=== PATIENT | female | born 1980 | race Caucasian/White ===

== ENCOUNTER 2019-05-13 20:11 | Emergency (ER) | payer BC ==
--- OUTSIDE RECORDS SUMMARY | 2019-05-13 20:25 | XMS REPORT | Continuity of Care Document ---
:1980 External Reference #:[id number] Author Name Haley Avitia N.P. 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 Onset: 05/22/2017 Palpitations Vic Ball M.D., [facility] Onset: 07/07/2016 Social History Type Date Description Comments Sex Unknown Cigarette Use Pack Years - 19 ETOH Use Denies alcohol use Tobacco Use Start: Unknown Patient is a current smoker, smokes every day Recreational Drug Use Denies Drug Use Smoking Status Reviewed: 04/29/19 Patient is a current smoker, smokes every day Exercise Type/Frequency Swims 2 times a week [facility] Allergies, Adverse Reactions, Alerts Description No Known Drug Allergies Medications Active Medications SIG Qnty Indications Ordering Provider Date Motrin Ib 3 tablet po Unknown 200mg Tablets daily For H/A , pain Xanax 1 tablet po as Unknown 0.25mg needed Amitriptyline HCL 1 tablet po up Unknown 25mg to 3 times per daily Spironolactone/Hydrochlor 1 by mouth Unknown othiazide every day 25-25mg Tablets Cyclobenzaprine HCL 1-2 by mouth as Unknown 5mg Tablets needed for pain and sleep [employer] [address] + Unknown [place] + Coq10 100mg CoQ10 1-2 daily Calcium Citrate + D3 take two tabs Unknown Maximum by mouth twice [id number] Tablets daily Chelated Magnesium 1-2 tab by Unknown 100mg mouth 2x daily Tablets L-Lysine HCL Unknown 1000mg Tablets Vitamin K2 1 by mouth Unknown 100mcg Capsules every day CBD [employer] 1000mg 2 times Unknown daily (30 gtts) Acetaminophen 2 tabs twive Unknown 500mg Tablets daily Immunizations Description No Information Available Vital Signs Date Vital Result Comment 04/29/2019 1:07pm Height 66.50 inches 5'6.50" Weight 233.25 lb Heart Rate 84 /min BP Systolic 127 mmHg BP Diastolic 92 mmHg O2 % BldC Oximetry 96 % BMI (Body Mass Index) 37.1 kg/m2 Last Menstrual Period [id number] 05/22/2017 11:16am Height 66.50 inches 5'6.50" Weight 228.00 lb without shoes Heart Rate 82 /min BP Systolic Sitting 114 mmHg Lue lg cuff BP Diastolic Sitting 80 mmHg Lue lg cuff BP Systolic Standing 118 mmHg Lue lg cuff BP Diastolic Standing 80 mmHg Lue lg cuff Respiratory Rate 17 /min BMI (Body Mass Index) 36.2 kg/m2 Ejection Fraction 55-60% date 05/06/17 ECHO Results Test Acquired Date Facility Test Result H/L Range Note Laboratory test 04/29/2019 [facility] Cytology <pending> finding [address] [place] [address] [phone] Procedures Date Code Description Status 03/02/2011 [id number] Mammogram Completed Medical Devices Description No Information Available Encounters Description No Information Available Assessments Description No Information Available Plan of Treatment No Information Available Functional Status Description No Information Available Mental Status Description No Information Available Referrals Description No Information Available
[2019-05-13 20:32] LABS: ABS Basophils 0.1 10^3/ul (0-0.2); ABS Eosinophils 0.1 10^3/ul (0-0.6); ABS Monocytes 0.8 10^3/ul (0-0.8); ABS Neutrophils 3.9 10^3/ul (1.5-7.7); Eosinophil % 1.2 %; Hematocrit 44 % (35-47); Lymphocyte % 38.1 %; Mean Corpuscular HGB Conc 35 g/dL (31-36); Mean Corpuscular Hemoglobin 30 pg (27-31); Mean Corpuscular Volume 88 fL (80-97); Mean Platelet Volume 8.7 fL (7.4-10.4); Platelet Count 284 10^3/uL (150-450); Red Blood Count 4.97 10^6 /uL (3.70-4.87); Red Cell Distribution Width 13 % (10-15)
[2019-05-13 20:39] LABS: INR 1.09 (0.82-1.09)
[2019-05-13 20:49] LABS: Albumin 4.5 g/dL (3.2-5.2); Albumin/Globulin Ratio 1.6 (1-3); BUN/Creatinine Ratio 28.2 (8-20); Calcium 9.8 mg/dL (8.6-10.3); EGFR African American 110.3 (>60); EGFR Non-African American 91.2 (>60); Globulin 2.8 g/dL (2-4); Potassium 3.4 mmol/L (3.5-5.0); Total Bilirubin 0.2 mg/dL (0.2-1.0); Total Protein 7.3 g/dL (6.4-8.9)
--- NOTE | 2019-05-14 02:20 | ED ---
HPI Chest Pain - HPI Summary HPI Summary: 39 year old female presents with chest pressure today. She states today when she was at work and was standing up she felt hot, dizzy and SOB. symptoms felt better with sitting. States that for the past 2 weeks she has been feeling off so scheduled an appointment with dr ball. Saw dr ball in past for murmur. She has been having intermittent chest pressure and short of breath. She denies any pain currently. No cough. No fevers. No abd pain. No nausea or vomiting. No recent travel. She hasn't tried anything for her symptoms. She is a smoker. Has history of high blood pressure. She is not diabetic. No family history of cardiac disease. - History of Current Complaint Chief Complaint: EDChestPainROMI Time Seen by Provider: 05/14/19 02:18 Hx Last Menstrual Period: now Pain Intensity: 0 - Allergy/Home Medications Allergies/Adverse Reactions: Allergies Allergy/AdvReac Type Severity Reaction Status Date / Time No Known Allergies Allergy Verified 03/29/19 09:19 Home Medications: Home Medications 2 Antibiotics ? Name 11/05/13 [History Confirmed 11/05/13] Amitriptyline TAB* 11/05/13 [History Confirmed 11/05/13] Flexeril TAB* 11/05/13 [History Confirmed 11/05/13] oxyCODONE TAB* 11/05/13 [History Confirmed 11/05/13] PMH/Surg Hx/FS Hx/Imm Hx Endocrine/Hematology History: Denies: Hx Anticoagulant Therapy Cardiovascular History: Reports: Hx Hypertension Respiratory History: Denies: Hx Asthma - Cancer History Hx Chemotherapy: No Hx Radiation Therapy: No - Surgical History Surgery Procedure, Year, and Place: C SECTION Infectious Disease History: No Infectious Disease History: Denies: Traveled Outside the [place] in Last 30 Days - Family History Known Family History: Negative: Cardiac Disease - Social History Alcohol Use: Occasionally Substance Use Type: Reports: Prescribed Smoking Status (MU): Heavy Every Day Tobacco Smoker Type: Cigarettes Review of Systems Negative: Fever Positive: Chest Pain Positive: Shortness Of Breath. Negative: Cough All Other Systems Reviewed And Are Negative: Yes Physical Exam Triage Information Reviewed: Yes Vital Signs On Initial Exam: Initial Vitals Temp Pulse Resp BP Pulse Ox 97.6 F 87 20 158/92 95 05/13/19 20:19 05/13/19 20:19 05/13/19 20:19 05/13/19 20:19 05/13/19 20:19 Vital Signs Reviewed: Yes Appearance: Positive: Well-Appearing Skin: Positive: Warm, Dry Head/Face: Positive: Normal Head/Face Inspection Eyes: Positive: Normal, Conjunctiva Clear ENT: Positive: Pharynx normal Respiratory/Lung Sounds: Positive: Clear to Auscultation, Breath Sounds Present , Other - nonreproducible chest pain Cardiovascular: Positive: Normal, RRR Abdomen Description: Positive: Nontender, Soft Bowel Sounds: Positive: Present Musculoskeletal: Positive: Normal Neurological: Positive: Normal, Normal Gait Psychiatric: Positive: Normal Procedures - Sedation Patient Received Moderate/Deep Sedation with Procedure: No Diagnostics - Vital Signs Vital Signs Temp Pulse Resp BP Pulse Ox 05/14/19 02:14 153/101 05/14/19 00:34 97.5 F 90 16 131/92 96 05/13/19 20:19 97.6 F 87 20 158/92 95 - Laboratory Lab Results: Lab Results 05/13/19 05/13/19 05/13/19 Range/Units 20:24 20:24 20:24 WBC 8.0 (3.5-10.8) 10^3/uL RBC 4.97 H (3.70-4.87) 10^6 /uL Hgb 15.0 (12.0-16.0) g/dL Hct 44 (35-47) % MCV 88 (80-97) fL MCH 30 (27-31) pg MCHC 35 (31-36) g/dL RDW 13 (10-15) % Plt Count 284 (150-450) 10^3/uL MPV 8.7 (7.4-10.4) fL Neut % (Auto) 49.5 % Lymph % (Auto) 38.1 % Kendall % (Auto) 10.5 % Eos % (Auto) 1.2 % Baso % (Auto) 0.7 % Absolute Neuts (auto) 3.9 (1.5-7.7) 10^3/ul Absolute Lymphs (auto) 3.0 (1.0-4.8) 10^3/ul Absolute Monos (auto) 0.8 (0-0.8) 10^3/ul Absolute Eos (auto) 0.1 (0-0.6) 10^3/ul Absolute Basos (auto) 0.1 (0-0.2) 10^3/ul Absolute Nucleated RBC 0.0 10^3/ul Nucleated RBC % 0.0 INR (Anticoag Therapy) 1.09 (0.82-1.09) D-Dimer, Quantitative < 200 (Less Than 230) ng/mL Sodium 137 (135-145) mmol/L Potassium 3.4 L (3.5-5.0) mmol/L Chloride 100 L (101-111) mmol/L Carbon Dioxide 26 (22-32) mmol/L Anion Gap 11 (2-11) mmol/L BUN 20 (6-24) mg/dL Creatinine 0.71 (0.51-0.95) mg/dL Est GFR ( Amer) 110.3 (>60) Est GFR (Non-Af Amer) 91.2 (>60) BUN/Creatinine Ratio 28.2 H (8-20) Glucose 145 H (70-100) mg/dL Calcium 9.8 (8.6-10.3) mg/dL Total Bilirubin 0.20 (0.2-1.0) mg/dL AST 25 (13-39) U/L ALT 34 (7-52) U/L Alkaline Phosphatase 64 (34-104) U/L Troponin I 0.00 (<0.03) ng/mL Total Protein 7.3 (6.4-8.9) g/dL Albumin 4.5 (3.2-5.2) g/dL Globulin 2.8 (2-4) g/dL Albumin/Globulin Ratio 1.6 (1-3) 05/13/19 Range/Units 23:25 WBC (3.5-10.8) 10^3/uL RBC (3.70-4.87) 10^6 /uL Hgb (12.0-16.0) g/dL Hct (35-47) % MCV (80-97) fL MCH (27-31) pg MCHC (31-36) g/dL RDW (10-15) % Plt Count (150-450) 10^3/uL MPV (7.4-10.4) fL Neut % (Auto) % Lymph % (Auto) % Kendall % (Auto) % Eos % (Auto) % Baso % (Auto) % Absolute Neuts (auto) (1.5-7.7) 10^3/ul Absolute Lymphs (auto) (1.0-4.8) 10^3/ul Absolute Monos (auto) (0-0.8) 10^3/ul Absolute Eos (auto) (0-0.6) 10^3/ul Absolute Basos (auto) (0-0.2) 10^3/ul Absolute Nucleated RBC 10^3/ul Nucleated RBC % INR (Anticoag Therapy) (0.82-1.09) D-Dimer, Quantitative (Less Than 230) ng/mL Sodium (135-145) mmol/L Potassium (3.5-5.0) mmol/L Chloride (101-111) mmol/L Carbon Dioxide (22-32) mmol/L Anion Gap (2-11) mmol/L BUN (6-24) mg/dL Creatinine (0.51-0.95) mg/dL Est GFR ( Amer) (>60) Est GFR (Non-Af Amer) (>60) BUN/Creatinine Ratio (8-20) Glucose (70-100) mg/dL Calcium (8.6-10.3) mg/dL Total Bilirubin (0.2-1.0) mg/dL AST (13-39) U/L ALT (7-52) U/L Alkaline Phosphatase (34-104) U/L Troponin I 0.00 (<0.03) ng/mL Total Protein (6.4-8.9) g/dL Albumin (3.2-5.2) g/dL Globulin (2-4) g/dL Albumin/Globulin Ratio (1-3) Result Diagrams: 05/13/19 20:24 05/13/19 20:24 Lab Statement: Any lab studies that have been ordered have been reviewed, and results considered in the medical decision making process. - Radiology chest Radiology Interpretation Completed By: ED Physician Summary of Radiographic Findings: no active disease - EKG No standard instances Cardiac Rate: NL EKG Rhythm: Sinus Rhythm Summary of EKG Findings: sinus rhythm, PVCs Chest Pain Course/Dx - Course Course Of Treatment: 39 year old female presents with chest pressure today. She states today when she was at work and was standing up she felt hot, dizzy and SOB. symptoms felt better with sitting. States that for the past 2 weeks she has been feeling off so scheduled an appointment with dr ball. Saw dr ball in past for murmur. She has been having intermittent chest pressure and short of breath. She denies any pain currently. No cough. No fevers. No abd pain. No nausea or vomiting. No recent travel. She hasn't tried anything for her symptoms. She is a smoker. Has history of high blood pressure. She is not diabetic. No family history of cardiac disease. On exam lungs CTA. Heart regular rate and rhythm. EKG shows sinus rhythm with PVCs. D-dimer negative. Chest x-ray normal. Troponin 2 was 0. Heart score 3. Patient has a follow- up with Dr. Ball. Discharge to have follow-up with cardiology. Patient understands agrees with plan. - Chest Pain Differential Diagnosis/HQI/PQRI: Angina, Chest Wall, Pulmonary Embolism - Diagnoses Provider Diagnoses: Atypical chest pain Discharge ED - Sign-Out/Discharge Documenting (check all that apply): Patient Departure - Discharge Plan Condition: Good Disposition: HOME Patient Education Materials: Chest Pain (ED) Referrals: Armand Cameoj MD [Primary Care Provider] - Vic Ball MD [Medical Doctor] - Additional Instructions: follow up with cardiology Return to ED if develop any new or worsening symptoms - Billing Disposition and Condition Condition: GOOD Disposition: Home
[2019-05-14 02:29] VITALS: BP 134/96
== END 2019-05-14 02:27 | disposition home or self-care (01) ==
LOC: ED 20:11
DX: R07.89 Other chest pain (principal); R06.02 Shortness of breath; I10 Essential (primary) hypertension; F17.210 Nicotine dependence, cigarettes, uncomplicated
CPT/HCPCS: 36415; 71046; 80053; 84484; 85025; 85379; 85610; 93005; 99282